=== PATIENT | female | born 1985 | race Caucasian/White ===

== ENCOUNTER 2017-05-27 09:47 | Emergency (ER) | payer OTHER ==
[2017-05-27] MEDS ORDERED: BENADRYL 50 MG/ML IV ONE (10:31)
[2017-05-27] MEDS ORDERED: Hydromorphone 1 mg/ml Ampule IV ONE (10:31)
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
[2017-05-27 10:39] LABS: Bilirubin NEGATIVE (NEGATIVE); Blood 50 Ery/ul (0-5); COMPLETE URINE MICROSCOPIC? YES; Collection Type CLEAN CATCH; Glucose NEGATIVE (NEGATIVE); Leukocyte Esterase TRACE (NEGATIVE)
[2017-05-27] MEDS ORDERED: BENADRYL 50 MG/ML ONE (10:45)
[2017-05-27] MEDS ORDERED: Hydromorphone 1 mg/ml Ampule ONE (10:45)
[2017-05-27 10:58] LABS: Clue Cells Few
[2017-05-27 11:00] LABS: Bacteria Moderate; Trichomonas None Seen; Yeast None Seen
[2017-05-27 11:02] LABS: Bacteria RARE /HPF (NEGATIVE); Epithelial Cells RARE /HPF (FEW)
[2017-05-27 11:03] LABS: ADD URINE CULTURE? NO (NO)
[2017-05-27 11:06] LABS: BASOPHIL % 0.5 % (0.0-0.4); Eosinophil % 5.7 % (0.00-5.0); Granulocytes % 65.4 % (36.0-66.0); Lymphocytes % 20.2 % (24.0-44.0); Mean Cell Volume 92.9 fl (78-100); Monocytes % 8.2 % (0.0-12.0); Platelet Count 341 K/mm3 (150-450); Red Blood Count 3.65 M/mm3 (4.1-5.4); Red Cell Distribution Width 15.2 % (11.5-14.0); White Blood Count 8.7 K/mm3 (4.0-10.5)
[2017-05-27 11:20] LABS: ALBUMIN 3.7 g/dL (3.4-5.0); ALKALINE PHOSPHATASE 149 U/L (46-116); ANION GAP 14.3 MEQ/L (5-15); BLOOD UREA NITROGEN 19 mg/dL (9-20); CHLORIDE 102 mEq/L (98-107); Carbon Dioxide 25.9 mEq/L (21-32); Glucose 90 MG/DL (70-110); Potassium 4.2 mEq/L (3.5-5.1); SGOT/AST 16 U/L (15-37); SGPT/ALT 17 U/L (12-78); SODIUM 138 mEq/L (136-145); Total Protein 7.7 gm/dL (6.4-8.2)
[2017-05-27] MEDS ORDERED: Diflucan 100 MG PO ONE (11:25)
[2017-05-27] MEDS ORDERED: DIFLUCAN PO ONE (11:30)
[2017-05-27 11:48] VITALS: BP 108/67; PULSE 90; O2SAT 96
== END 2017-05-27 11:49 | disposition home or self-care (01) ==
LOC: ED 09:47
DX: N76.0 Acute vaginitis (principal)
CPT/HCPCS: 36000; 36415; 80053; 81000; 84703; 85025; 87210; 96374; 96375; 99284; J1170; J1200; P9612; A9270-GY

== ENCOUNTER 2017-08-02 18:25 | Emergency (ER) | payer OTHER ==
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
[2017-08-02 21:24] LABS: Collection Type VOID
[2017-08-02 21:25] LABS: ADD URINE CULTURE? NO (NO); Bacteria FEW /HPF (NEGATIVE); Bilirubin NEGATIVE (NEGATIVE); Blood 250 Ery/ul (0-5); COMPLETE URINE MICROSCOPIC? YES; Epithelial Cells MODERATE /HPF (FEW); Glucose NEGATIVE (NEGATIVE); Leukocyte Esterase NEGATIVE (NEGATIVE); WBC 0-2 /HPF (0-5)
[2017-08-02] MEDS ORDERED: TORAdol 30 mg Injection IM ONE (21:44)
[2017-08-02] MEDS ORDERED: TORAdol 30 mg Injection ONE (21:46)
[2017-08-02 23:29] VITALS: BP 116/66; PULSE 55; O2SAT 100
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
== END 2017-08-02 23:34 | disposition home or self-care (01) ==
LOC: ED 18:25
DX: S39.012A Strain of muscle, fascia and tendon of lower back, initial encounter (principal); R10.2 Pelvic and perineal pain; W10.8XXA Fall (on) (from) other stairs and steps, initial encounter
CPT/HCPCS: 72100; 72170; 80307; 81000; 84703; J1885

== ENCOUNTER 2018-01-26 15:47 | Emergency (ER) | payer OTHER ==
[2018-01-26 15:59] VITALS: BP 113/90; PULSE 110; O2SAT 98
[2018-01-26] MEDS ORDERED: TORAdol 30 mg Injection IM ONE (16:17)
[2018-01-26] MEDS ORDERED: TORAdol 30 mg Injection ONE (16:22)
[2018-01-26] MEDS ORDERED: ULTRAM 50 MG PO ONE (16:32)
[2018-01-26] MEDS ORDERED: ULTRAM 50 MG ONE (16:38)
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
== END 2018-01-26 16:55 | disposition home or self-care (01) ==
LOC: ED 15:47
DX: S33.4XXA Traumatic rupture of symphysis pubis, initial encounter (principal)
CPT/HCPCS: 96372; 99283; J1885; A9270-GY

== ENCOUNTER 2020-12-20 20:13 | Emergency (ER) | payer OTHER ==
--- NOTE | 2020-12-20 20:27 | ERPHSYRPT ---
- History of Present Illness Time Seen by Provider: 12/20/20 20:21 Source: patient, family, EMS Exam Limitations: clinical condition Physician History: pt with known drug problems prior reported by family presented to neighbors and collapsed unresponsive. EMS found pinpoint pupils and gave Narcan twice with beginning response by arrival in ER. Pt denies any symptoms or injuries at this time. Timing/Duration: today Severity: severe Associated Symptoms: denies symptoms Allergies/Adverse Reactions: No Known Drug Allergies Allergy (Verified 12/20/20 20:39) Home Medications: Cariprazine HCl [Vraylar] 1.5 mg PO DAILY 12/20/20 [History] Meclizine HCl 12.5 mg PO BID PRN PRN 12/20/20 [History] Tramadol HCl 50 mg [Ultram 50 mg] 50 mg PO Q6H PRN PRN 12/20/20 [History] hydrOXYzine HCL [Hydroxyzine HCl] 25 mg PO TID PRN PRN 12/20/20 [History] Hx Tetanus, Diphtheria Vaccination/Date Given: Yes Hx Influenza Vaccination/Date Given: No Hx Pneumococcal Vaccination/Date Given: No - Review of Systems Constitutional: No Fever, No Chills Eyes: No Symptoms Ears, Nose, & Throat: No Symptoms Respiratory: No Cough, No Dyspnea Cardiac: No Chest Pain, No Edema, No Syncope Abdominal/Gastrointestinal: No Abdominal Pain, No Nausea, No Vomiting, No Diarrhea Genitourinary Symptoms: No Dysuria Musculoskeletal: No Back Pain, No Neck Pain Skin: No Rash Neurological: Other (AMS after presumed drug overdose), No Dizziness, No Focal Weakness, No Sensory Changes Psychological: Drug Abuse Endocrine: No Symptoms All Other Systems: Reviewed and Negative - Past Medical History Pertinent Past Medical History: Yes Neurological History: Peripheral Neuropathy ENT History: No Pertinent History Cardiac History: No Pertinent History Respiratory History: No Pertinent History Endocrine Medical History: No Pertinent History Musculoskeletal History: Fractures, Osteoarthritis GI Medical History: No Pertinent History History: Other Psycho-Social History: Depression Female Reproductive Disorders: Other Other Medical History: Pt had in patient rehab after surgery, then had home health - Past Surgical History Past Surgical History: Yes Musculoskeletal: Orthopedic Surgery Female Surgical History: Tubal Ligation - Social History Smoking Status: Current every day smoker How long have you smoked: years Exposure to second hand smoke: Yes Drug Use: none Patient Lives Alone: No - Nursing Vital Signs Nursing Vital Signs: Initial Vital Signs Temperature 96.0 F 12/20/20 20:17 Pulse Rate 80 12/20/20 20:17 Respiratory Rate 20 12/20/20 20:17 Blood Pressure 122/92 12/20/20 20:17 O2 Sat by Pulse Oximetry 99 12/20/20 20:17 Pain Scale Pain Intensity 0 - Physical Exam General Appearance: no apparent distress, alert, other (more alert as time goes by. ) Eye Exam: PERRL/EOMI, eyes nml inspection Ears, Nose, Throat Exam: normal ENT inspection, TMs normal, pharynx normal, moist mucous membranes Neck Exam: normal inspection, non-tender, supple, full range of motion Respiratory Exam: normal breath sounds, lungs clear, No respiratory distress Cardiovascular Exam: regular rate/rhythm, normal heart sounds, normal peripheral pulses Gastrointestinal/Abdomen Exam: soft, normal bowel sounds, No tenderness, No mass Back Exam: normal inspection, normal range of motion, No CVA tenderness, No vertebral tenderness Extremity Exam: normal inspection, normal range of motion, pelvis stable Neurologic Exam: alert, oriented x 3, cooperative, normal mood/affect, nml cerebellar function, nml station & gait, sensation nml, No motor deficits Skin Exam: normal color, warm, dry, No rash Lymphatic Exam: No adenopathy SpO2: 99 - Course Nursing assessment & vital signs reviewed: Yes EKG Interpreted by Me: Sinus Rhythm, NORMAL AXIS, NORMAL INTERVALS, NORMAL QRS, Non-specific ST Changes Ordered Tests: Active Orders 24 hr Category Date Time Status Theatrical Scenic Designer STAT Care 12/20/20 20:31 Active Clean Catch Urine Specimen STAT Care 12/20/20 20:28 Active EKG-ER Only STAT Care 12/20/20 20:28 Active Pulse Oximetry (ED) STAT Care 12/20/20 20:28 Active CHEST 1 VIEW (PORTABLE) Stat Exams 12/20/20 20:30 Taken ACETAMINOPHEN Stat Lab 12/20/20 21:06 Completed CBC W DIFF Stat Lab 12/20/20 21:06 Completed CMP Stat Lab 12/20/20 21:06 Completed ETHYL ALCOHOL Stat Lab 12/20/20 21:06 Completed HCG QUALITATIVE,SERUM Stat Lab 12/20/20 21:06 Completed Lactic Acid Stat Lab 12/20/20 21:00 Completed SALICYLATE Stat Lab 12/20/20 21:06 Completed UA W/RFX UR CULTURE Stat Lab 12/20/20 20:29 Ordered Urine Triage Profile Stat Lab 12/20/20 20:29 Ordered Medication Summary Discontinued Medications Generic Name Dose Route Start Last Admin Trade Name Riddhi PRN Reason Stop Dose Admin Sodium Chloride 1,000 mls @ 999 mls/hr 12/20/20 20:28 12/20/20 20:38 Sodium Chloride 0.9% 1000 Ml IV 12/20/20 21:28 999 mls/hr .Q1H1M STA Administration Sodium Chloride Confirm 12/20/20 20:36 Sodium Chloride 0.9% 1000 Ml Administered 12/20/20 20:37 Dose 1,000 mls @ ud .ROUTE .STK-MED ONE Lab/Rad Data: Laboratory Result Diagrams 12/20/20 21:06 12/20/20 21:06 Laboratory Results 12/20/20 12/20/20 12/20/20 Range/Units 21:06 21:06 21:06 WBC 13.1 H (4.0-10.5) K/mm3 RBC 4.26 (4.1-5.4) M/mm3 Hgb 12.5 (12.0-16.0) gm/dl Hct 38.1 (35-47) % MCV 89.4 (78-100) fl MCH 29.3 (26-32) pg MCHC 32.8 (32-36) g/dl RDW 12.8 (11.5-14.0) % Plt Count 246 (150-450) K/mm3 MPV 10.2 (7.5-11.0) fl Gran % 82.4 H (36.0-66.0) % Eos # (Auto) 0.06 (0-0.5) Absolute Lymphs (auto) 1.46 (1.0-4.6) Absolute Monos (auto) 0.74 (0.0-1.3) Lymphocytes % 11.2 L (24.0-44.0) % Monocytes % 5.7 (0.0-12.0) % Eosinophils % 0.5 (0.00-5.0) % Basophils % 0.2 (0.0-0.4) % Absolute Granulocytes 10.79 H (1.4-6.9) Basophils # 0.03 (0-0.4) Sodium 136 L (137-145) mmol/L Potassium 4.2 (3.5-5.1) mmol/L Chloride 104 (98-107) mmol/L Carbon Dioxide 24 (22-30) mmol/L Anion Gap 11.6 (5-15) MEQ/L BUN 16 (7-17) mg/dL Creatinine 0.65 (0.52-1.04) mg/dL Estimated GFR > 60.0 ML/MIN Glucose 100 (74-106) mg/dL Lactic Acid (0.4-2.0) Calcium 9.3 (8.4-10.2) mg/dL Total Bilirubin 0.50 (0.2-1.3) mg/dL AST 27 (14-36) U/L ALT 19 (0-35) U/L Alkaline Phosphatase 70 (38-126) U/L Serum Total Protein 7.5 (6.3-8.2) g/dL Albumin 4.3 (3.5-5.0) g/dL Serum , Qual NEGATIVE (Negative) Salicylates < 1.0 L (2-20) mg/dL Acetaminophen < 10 L (10-30) ug/ml Ethyl Alcohol < 10 (0-10) mg/dL 12/20/20 Range/Units 21:00 WBC (4.0-10.5) K/mm3 RBC (4.1-5.4) M/mm3 Hgb (12.0-16.0) gm/dl Hct (35-47) % MCV (78-100) fl MCH (26-32) pg MCHC (32-36) g/dl RDW (11.5-14.0) % Plt Count (150-450) K/mm3 MPV (7.5-11.0) fl Gran % (36.0-66.0) % Eos # (Auto) (0-0.5) Absolute Lymphs (auto) (1.0-4.6) Absolute Monos (auto) (0.0-1.3) Lymphocytes % (24.0-44.0) % Monocytes % (0.0-12.0) % Eosinophils % (0.00-5.0) % Basophils % (0.0-0.4) % Absolute Granulocytes (1.4-6.9) Basophils # (0-0.4) Sodium (137-145) mmol/L Potassium (3.5-5.1) mmol/L Chloride (98-107) mmol/L Carbon Dioxide (22-30) mmol/L Anion Gap (5-15) MEQ/L BUN (7-17) mg/dL Creatinine (0.52-1.04) mg/dL Estimated GFR ML/MIN Glucose (74-106) mg/dL Lactic Acid 0.9 (0.4-2.0) Calcium (8.4-10.2) mg/dL Total Bilirubin (0.2-1.3) mg/dL AST (14-36) U/L ALT (0-35) U/L Alkaline Phosphatase (38-126) U/L Serum Total Protein (6.3-8.2) g/dL Albumin (3.5-5.0) g/dL Serum , Qual (Negative) Salicylates (2-20) mg/dL Acetaminophen (10-30) ug/ml Ethyl Alcohol (0-10) mg/dL - Progress Progress: improved, re-examined Progress Note: 12/20/20 22:17 pt is now fully alert and walking without assist. clinically sober. Pt wishes to decline furhter care or workup in ER/hospital, and has been advised of risk of from undetected pathology, cardiovascular or other complications, and from any further drug use. She wishes to sign out AMA. SHe has now a normal mental status with no suicidal or homicidal ideations and has the capacity to make that choice. She has been advised to enter a drug rehab program [facility], followup with PCP, and return meantime if any symptoms or other concerns. Counseled pt/family regarding: drug and/or alcohol abuse, lab results, diag nosis, need for follow-up, rad results - Departure Departure Disposition: AMA Clinical Impression: apparent drug overdose Condition: Good Critical Care Time: No Referrals: ARASELI BARON [Primary Care Provider] - Instructions: Opioid Overdose (DC), Polysubstance Abuse (DC), Drug Abuse and Drug Addiction (DC) Additional Instructions: Followup with your DrVilma or a drug rehab program to help prevent further events. Additional undetected complications may still be evolving , which is why we advised to stay for observation, to avoid complications including . Return meantime if any furhter symptoms or concerns. It would be best to at least stay with a friend who could check on you tonight and the next few days.
[2020-12-20] MEDS ORDERED: Sodium Chloride 0.9% 1000 ML 1,000 ML IV STA (20:28)
[2020-12-20] MEDS ORDERED: Sodium Chloride 0.9% 1000 ML 1,000 ML ONE (20:36)
[2020-12-20 21:10] LABS: Absolute Neutrophil Ct (ANC) 10.79 (1.4-6.9); BASOPHIL % 0.2 % (0.0-0.4); Basophil (Absolute #) 0.03 (0-0.4); Eosinophil % 0.5 % (0.00-5.0); Eosinophil (Absolute #) 0.06 (0-0.5); Hematocrit 38.1 % (35-47); Hemoglobin 12.5 gm/dl (12.0-16.0); Lymphocyte (Absolute #) 1.46 (1.0-4.6); Lymphocytes % 11.2 % (24.0-44.0); Mean Cell Volume 89.4 fl (78-100); Mean Corpuscular Hemoglobin 29.3 pg (26-32); Mean Corpuscular Hgb Concent. 32.8 g/dl (32-36); Mean Platelet Volume 10.2 fl (7.5-11.0); Monocyte (Absolute #) 0.74 (0.0-1.3); Monocytes % 5.7 % (0.0-12.0); Neutrophil % 82.4 % (36.0-66.0); Platelet Count 246 K/mm3 (150-450); Red Blood Count 4.26 M/mm3 (4.1-5.4); Red Cell Distribution Width 12.8 % (11.5-14.0); White Blood Count 13.1 K/mm3 (4.0-10.5)
[2020-12-20 21:30] LABS: ACETAMINOPHEN < 10 ug/ml (10-30); ALBUMIN 4.3 g/dL (3.5-5.0); ALKALINE PHOSPHATASE 70 U/L (38-126); ANION GAP 11.6 MEQ/L (5-15); BLOOD UREA NITROGEN 16 mg/dL (7-17); CHLORIDE 104 mmol/L (98-107); Calcium 9.3 mg/dL (8.4-10.2); Carbon Dioxide 24 mmol/L (22-30); Creatinine 1 0.65 mg/dL (0.52-1.04); EST GLOMERULAR FILTRATION RATE > 60.0 ML/MIN; ETHYL ALCOHOL < 10 mg/dL (0-10); Glucose 100 mg/dL (74-106); Potassium 4.2 mmol/L (3.5-5.1); SALICYLATE < 1.0 mg/dL (2-20); SGOT/AST 27 U/L (14-36); SGPT/ALT 19 U/L (0-35); SODIUM 136 mmol/L (137-145); Total Protein 7.5 g/dL (6.3-8.2)
[2020-12-20 22:12] VITALS: PULSE 87
[2020-12-20 22:53] VITALS: BP 120/80; O2SAT 100
[2020-12-21 00:16] LABS: Barbiturate,Urine NEGATIVE (NEGATIVE); Benzodiazepine,Urine NEGATIVE (NEGATIVE); Cocaine,Urine NEGATIVE (NEGATIVE); Methadone,Urine NEGATIVE (NEGATIVE); Opiate,Urine NEGATIVE (NEGATIVE); PCP,Urine NEGATIVE (NEGATIVE); THC,Urine POSITIVE (NEGATIVE)
[2020-12-21 00:38] LABS: Appearance CLEAR (CLEAR); Bilirubin NEGATIVE (NEGATIVE); Blood SMALL Ery/ul (0-5); Glucose NEGATIVE (NEGATIVE); Ketones TRACE (NEGATIVE); Leukocyte Esterase NEGATIVE (NEGATIVE); Mucus SLIGHT /HPF (NEGATIVE); Nitrite NEGATIVE (NEGATIVE); Protein,Urine Dip NEGATIVE (Negative); Specific Gravity 1.014 (1.005-1.025); Urobilinogen NEGATIVE mg/dL (0-1)
[2020-12-21 00:49] LABS: Amphetamine,Urine POSITIVE (NEGATIVE)
--- NOTE | 2020-12-21 09:21 | XRAY ---
Indication: Acute mental status change. Comparison: None Portable chest again demonstrates normal heart and lungs. 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
== END 2020-12-20 22:53 | disposition home or self-care (01) ==
LOC: ED 20:13
DX: R55 Syncope and collapse (principal); F19.10 Other psychoactive substance abuse, uncomplicated; F17.210 Nicotine dependence, cigarettes, uncomplicated
CPT/HCPCS: 36415; 71045; 80053; 80307; 81001; 81025; 83605; 85025; 93005; 93041; 94760; 96360; 99284; G0480

== ENCOUNTER 2021-01-28 10:30 | Emergency (ER) | payer OTHER ==
[2021-01-28] MEDS ORDERED: Sodium Chloride 0.9% 1000 ML 1,000 ML ONE (11:02)
[2021-01-28] MEDS: Sodium Chloride 0.9% 1000 ML 1,000 ML IV STA (11:04)
[2021-01-28 11:19] LABS: ALBUMIN 4.5 g/dL (3.5-5.0); ALKALINE PHOSPHATASE 123 U/L (38-126); ANION GAP 13.2 MEQ/L (5-15); Appearance CLOUDY (CLEAR); BLOOD UREA NITROGEN 13 mg/dL (7-17); Bacteria MODERATE /HPF (NEGATIVE); Bilirubin NEGATIVE (NEGATIVE); Blood MODERATE Ery/ul (0-5); CHLORIDE 99 mmol/L (98-107); Calcium 9.4 mg/dL (8.4-10.2); Carbon Dioxide 27 mmol/L (22-30); Creatinine 1 0.63 mg/dL (0.52-1.04); EST GLOMERULAR FILTRATION RATE > 60.0 ML/MIN; Epithelial Cells FEW /HPF (FEW); Glucose 104 mg/dL (74-106); Glucose NEGATIVE (NEGATIVE); Ketones NEGATIVE (NEGATIVE); Leukocyte Esterase LARGE (NEGATIVE); Mucus SLIGHT /HPF (NEGATIVE); Nitrite NEGATIVE (NEGATIVE); Potassium 3.8 mmol/L (3.5-5.1); Protein,Urine Dip 30 (Negative); SGOT/AST 28 U/L (14-36); SGPT/ALT 22 U/L (0-35); SODIUM 135 mmol/L (137-145); Specific Gravity 1.024 (1.005-1.025); Urobilinogen 2 mg/dL (0-1); WBC >100 /HPF (0-5)
[2021-01-28] MEDS ORDERED: TORAdol 30 mg Injection ONE (11:29)
[2021-01-28] MEDS: TORAdol 30 mg Injection IV ONE (11:29)
--- NOTE | 2021-01-28 11:33 | ERPHSYRPT ---
- History of Present Illness Time Seen by Provider: 01/28/21 10:40 Historian: patient Exam Limitations: no limitations Patient Subjective Stated Complaint: Pt states that it has been hurting in her right flank and lower right abdomen for the past 2-3 days and has pain in a bdomen when urinating Triage Nursing Assessment: Pt was brought to the ER by her dad, vitals wnl, rates abdominal pain as 8/10, right flank pain and right lower abdominal pain, pain with palpatation, pulses normal, skin n/w/d Physician History: Patient is a 35-year-old female presents to our emergency department for evaluation of right lower quadrant pain. Symptoms started approximately 3 days ago. Pain described as an ache that is localized. Pain tends to radiate to her back. No specific worsening or improving factors. Patient also admits that she is experiencing dysuria. Patient expresses a concern for possible gonorrhea infection. She states she had unprotected intercourse with a friend. Shortly thereafter he called her and told her that he had been exposed to gonorrhea. Patient requesting to be checked. Patient declined a pelvic exam. So we obtained a gonorrhea chlamydia and urine sample. Patient elected to self swab f or the wet prep. Patient denies nausea or vomiting. No diarrhea no rash. Symptoms are mild to moderate in intensity. No specific worsening improving factors. Patient voices no other complaints concerns at this time. Timing/Duration: day(s) (3 days ago.) Activities at Onset: none Quality: aching Abdominal Pain Onset Location: RLQ Pain Radiation: back Severity of Pain-Max: moderate Modifying Factors: Improves With: movement Associated Symptoms: back, No diarrhea, No fever/chills, No nausea, No vomiting Previous symptoms: no prior history Allergies/Adverse Reactions: No Known Drug Allergies Allergy (Verified 01/28/21 10:44) Home Medications: Cariprazine HCl [Vraylar] 1.5 mg PO DAILY 01/28/21 [History] Hydroxyzine HCl 25 mg [Atarax 25 mg] 25 mg PO TID 01/28/21 [History] Naltrexone HCl 50 mg PO DAILY 01/28/21 [History] Hx Tetanus, Diphtheria Vaccination/Date Given: Yes Hx Influenza Vaccination/Date Given: No Hx Pneumococcal Vaccination/Date Given: No Travel Risk - International Travel Have you traveled outside of the country in past 3 weeks: No - Coronavirus Screening Are you exhibiting any of the following symptoms?: No Close contact with a COVID-19 positive Pt in past 14-21 Days: No - Review of Systems Constitutional: No Symptoms, No Fever, No Chills Eyes: No Symptoms Ears, Nose, & Throat: No Symptoms Respiratory: No Symptoms, No Cough, No Dyspnea Cardiac: No Symptoms, No Chest Pain, No Edema, No Syncope Abdominal/Gastrointestinal: No Symptoms, No Abdominal Pain, No Nausea, No Vomiting, No Diarrhea Genitourinary Symptoms: No Symptoms, No Dysuria Musculoskeletal: No Symptoms, No Back Pain, No Neck Pain Skin: No Symptoms, No Rash Neurological: No Symptoms, No Dizziness, No Focal Weakness, No Sensory Changes Psychological: No Symptoms Endocrine: No Symptoms Hematologic/Lymphatic: No Symptoms Immunological/Allergic: No Symptoms All Other Systems: Reviewed and Negative - Past Medical History Pertinent Past Medical History: Yes Neurological History: Peripheral Neuropathy ENT History: No Pertinent History Cardiac History: No Pertinent History Respiratory History: No Pertinent History Endocrine Medical History: No Pertinent History Musculoskeletal History: Fractures, Osteoarthritis GI Medical History: No Pertinent History History: Other Psycho-Social History: Depression Female Reproductive Disorders: Other Other Medical History: Pt had in patient rehab after surgery, then had home health - Past Surgical History Past Surgical History: Yes Musculoskeletal: Orthopedic Surgery Female Surgical History: Tubal Ligation - Social History Smoking Status: Current every day smoker How long have you smoked: years Exposure to second hand smoke: Yes Drug Use: none Patient Lives Alone: Yes - Female History Hx Now: No (tubal) - Nursing Vital Signs Nursing Vital Signs: Initial Vital Signs Temperature 98.0 F 01/28/21 10:36 Pulse Rate 97 H 01/28/21 10:36 Blood Pressure 136/84 01/28/21 10:36 O2 Sat by Pulse Oximetry 100 01/28/21 10:36 Pain Scale Pain Intensity 3 - Physical Exam General Appearance: no apparent distress, alert Eye Exam: PERRL/EOMI, eyes nml inspection Ears, Nose, Throat Exam: normal ENT inspection, pharynx normal, moist mucous membranes Neck Exam: normal inspection, non-tender, supple, full range of motion Respiratory Exam: normal breath sounds, lungs clear, No respiratory distress Cardiovascular Exam: regular rate/rhythm, normal heart sounds Gastrointestinal/Abdomen Exam: soft, other (Well-healed midline surgical scar. Tenderness to palpation at McBurney's point and right pelvic tenderness at the area of the right ovary.), No tenderness, No mass Back Exam: normal inspection, normal range of motion, No CVA tenderness, No vertebral tenderness Extremity Exam: normal inspection, normal range of motion, pelvis stable Neurologic Exam: alert, oriented x 3, cooperative, normal mood/affect, nml cerebellar function, sensation nml, No motor deficits Skin Exam: normal color, warm, dry SpO2 Interpretation: normal SpO2: 100 O2 Delivery: Room Air - Course Nursing assessment & vital signs reviewed: Yes - Radiology Ultrasound Exam Pelvis Ultrasound: discussed w/radiologist (Per advertising designer no torsion. Small cysts observed. Small fluid in cul-de-sac. Otherwise nonremarkable pelvic ultrasound.) Ordered Tests: Active Orders 24 hr Category Date Time Status IV Insertion STAT Care 01/28/21 10:53 Active ABDOMEN AND PELVIS W CONTRAST [CT] Stat Exams 01/28/21 12:03 Completed PELVIS TRANS VAGINAL [US] Stat Exams 01/28/21 11:51 Completed CBC W DIFF Stat Lab 01/28/21 11:00 Completed CMP Stat Lab 01/28/21 11:00 Completed CULTURE,URINE Stat Lab 01/28/21 11:00 Received HCG,QUALITATIVE URINE Stat Lab 01/28/21 11:17 Completed UA W/RFX UR CULTURE Stat Lab 01/28/21 11:00 Completed Wet Prep Stat Lab 01/28/21 11:42 Completed Medication Summary Discontinued Medications Generic Name Dose Route Start Last Admin Trade Name Freq PRN Reason Stop Dose Admin Sodium Chloride 1,000 mls @ 999 mls/hr 01/28/21 10:53 01/28/21 12:48 Sodium Chloride 0.9% 1000 Ml IV 01/28/21 11:53 Infused .Q1H1M STA Infusion Sodium Chloride Confirm 01/28/21 11:02 Sodium Chloride 0.9% 1000 Ml Administered 01/28/21 11:03 Dose 1,000 mls @ ud .ROUTE .STK-MED ONE Ketorolac Tromethamine 30 mg 01/28/21 11:24 01/28/21 11:29 Toradol 30 Mg Injection IV 01/28/21 11:25 30 mg STAT ONE Administration Ketorolac Tromethamine Confirm 01/28/21 11:29 Toradol 30 Mg Injection Administered 01/28/21 11:30 Dose 30 mg .ROUTE .STK-MED ONE Nitrofurantoin Macrocrystals 100 mg 01/28/21 12:48 01/28/21 12:51 Macrobid 100mg Capsule PO 01/28/21 12:49 100 mg STAT ONE Administration Nitrofurantoin Macrocrystals Confirm 01/28/21 12:50 Macrobid 100mg Capsule Administered 01/28/21 12:51 Dose 100 mg .ROUTE .STK-MED ONE Ondansetron HCl 4 mg 01/28/21 12:13 01/28/21 12:18 Zofran 4 Mg/2 Ml Vial IV 01/28/21 12:14 4 mg STAT ONE Administration Ondansetron HCl Confirm 01/28/21 12:16 Zofran 4 Mg/2 Ml Vial Administered 01/28/21 12:17 Dose 4 mg .ROUTE .STK-MED ONE Lab/Rad Data: Laboratory Result Diagrams 01/28/21 11:00 01/28/21 11:00 Laboratory Results 01/28/21 01/28/21 01/28/21 Range/Units 11:42 11:17 11:00 WBC (4.0-10.5) K/mm3 RBC (4.1-5.4) M/mm3 Hgb (12.0-16.0) gm/dl Hct (35-47) % MCV (78-100) fl MCH (26-32) pg MCHC (32-36) g/dl RDW (11.5-14.0) % Plt Count (150-450) K/mm3 MPV (7.5-11.0) fl Gran % (36.0-66.0) % Eos # (Auto) (0-0.5) Absolute Lymphs (auto) (1.0-4.6) Absolute Monos (auto) (0.0-1.3) Lymphocytes % (24.0-44.0) % Monocytes % (0.0-12.0) % Eosinophils % (0.00-5.0) % Basophils % (0.0-0.4) % Absolute Granulocytes (1.4-6.9) Basophils # (0-0.4) Sodium (137-145) mmol/L Potassium (3.5-5.1) mmol/L Chloride (98-107) mmol/L Carbon Dioxide (22-30) mmol/L Anion Gap (5-15) MEQ/L BUN (7-17) mg/dL Creatinine (0.52-1.04) mg/dL Estimated GFR ML/MIN Glucose (74-106) mg/dL Calcium (8.4-10.2) mg/dL Total Bilirubin (0.2-1.3) mg/dL AST (14-36) U/L ALT (0-35) U/L Alkaline Phosphatase (38-126) U/L Serum Total Protein (6.3-8.2) g/dL Albumin (3.5-5.0) g/dL Urine Color YELLOW (YELLOW) Urine Appearance CLOUDY (CLEAR) Urine pH 7.0 (5-6) Ur Specific [place] 1.024 (1.005-1.025) Urine Protein 30 (Negative) Urine Ketones NEGATIVE (NEGATIVE) Urine Blood MODERATE (0-5) Valentin/ul Urine Nitrite NEGATIVE (NEGATIVE) Urine Bilirubin NEGATIVE (NEGATIVE) Urine Urobilinogen 2 (0-1) mg/dL Ur Leukocyte Esterase LARGE (NEGATIVE) Urine WBC (Auto) >100 (0-5) /HPF Urine RBC (Auto) 6-10 (0-2) /HPF U Epithel Cells (Auto) FEW (FEW) /HPF Urine Bacteria (Auto) MODERATE (NEGATIVE) /HPF Urine Mucus (Auto) SLIGHT (NEGATIVE) /HPF Urine Culture Reflexed YES (NO) Urine Glucose NEGATIVE (NEGATIVE) mg/dL Urine HCG, Qual NEGATIVE (Negative) WBC (Wet Prep) Moderate RBC (Wet Prep) Rare Epi Cells (Wet Prep) Few Bacteria (Wet Prep) Moderate Clue Cells (Wet Prep) None Seen Trichomonas (Wet Prep) None Seen Budding Yeast (Wet Prp) None Seen 01/28/21 01/28/21 Range/Units 11:00 11:00 WBC 12.1 H (4.0-10.5) K/mm3 RBC 4.27 (4.1-5.4) M/mm3 Hgb 12.6 (12.0-16.0) gm/dl Hct 38.2 (35-47) % MCV 89.5 (78-100) fl MCH 29.5 (26-32) pg MCHC 33.0 (32-36) g/dl RDW 12.8 (11.5-14.0) % Plt Count 320 (150-450) K/mm3 MPV 10.4 (7.5-11.0) fl Gran % 69.0 H (36.0-66.0) % Eos # (Auto) 0.34 (0-0.5) Absolute Lymphs (auto) 2.45 (1.0-4.6) Absolute Monos (auto) 0.88 (0.0-1.3) Lymphocytes % 20.3 L (24.0-44.0) % Monocytes % 7.3 (0.0-12.0) % Eosinophils % 2.8 (0.00-5.0) % Basophils % 0.6 (0.0-0.4) % Absolute Granulocytes 8.33 H (1.4-6.9) Basophils # 0.07 (0-0.4) Sodium 135 L (137-145) mmol/L Potassium 3.8 (3.5-5.1) mmol/L Chloride 99 (98-107) mmol/L Carbon Dioxide 27 (22-30) mmol/L Anion Gap 13.2 (5-15) MEQ/L BUN 13 (7-17) mg/dL Creatinine 0.63 (0.52-1.04) mg/dL Estimated GFR > 60.0 ML/MIN Glucose 104 (74-106) mg/dL Calcium 9.4 (8.4-10.2) mg/dL Total Bilirubin 0.40 (0.2-1.3) mg/dL AST 28 (14-36) U/L ALT 22 (0-35) U/L Alkaline Phosphatase 123 (38-126) U/L Serum Total Protein 8.0 (6.3-8.2) g/dL Albumin 4.5 (3.5-5.0) g/dL Urine Color (YELLOW) Urine Appearance (CLEAR) Urine pH (5-6) Ur Specific [place] (1.005-1.025) Urine Protein (Negative) Urine Ketones (NEGATIVE) Urine Blood (0-5) Valentin/ul Urine Nitrite (NEGATIVE) Urine Bilirubin (NEGATIVE) Urine Urobilinogen (0-1) mg/dL Ur Leukocyte Esterase (NEGATIVE) Urine WBC (Auto) (0-5) /HPF Urine RBC (Auto) (0-2) /HPF U Epithel Cells (Auto) (FEW) /HPF Urine Bacteria (Auto) (NEGATIVE) /HPF Urine Mucus (Auto) (NEGATIVE) /HPF Urine Culture Reflexed (NO) Urine Glucose (NEGATIVE) mg/dL Urine HCG, Qual (Negative) WBC (Wet Prep) RBC (Wet Prep) Epi Cells (Wet Prep) Bacteria (Wet Prep) Clue Cells (Wet Prep) Trichomonas (Wet Prep) Budding Yeast (Wet Prp) - Progress Progress: improved Progress Note: 01/28/21 12:16 Ultrasound reveals a new 1.9 cm complex right ovary cyst. Follow-up recommended following at least 2 menstrual cycles. Work-up reveals constipation. Patient will take [id number] laxative as needed. UA significant for urinary tract infection. Patient received a dose of Macrobid in our ED. A prescription for the same was sent to patient's pharmacy. Patient states she has been exposed to gonorrhea. Wet mount negative. GC chlamydia pending. Patient does not want to wait for her results. Patient has an appointment scheduled to see her primary care doctor tomorrow. Patient states if her test is positive we should call into her primary care doctor and he will treat her from the office. Patient voices no other complaints at this time. Patient requesting discharge as her child is waiting in the waiting room and wants to leave. Patient voices no other complaints or concerns at this time. Will discharge home at this time. 01/28/21 13:46 Counseled pt/family regarding: lab results, diagnosis, need for follow-up, rad results - Departure Departure Disposition: Home Clinical Impression: UTI (urinary tract infection), Abdominal pain, Nabothian cyst, Constipation, STD exposure Condition: Stable Critical Care Time: No Referrals: ARASELI BARON [Primary Care Provider] - Additional Instructions: Discharge/Care Plan SRIRAM DYKES was seen on 01/28/21 in the Emergency Room. The patient was counseled regarding Diagnosis,Lab results, Imaging studies, need for follow up and when to return to the Emergency Room. Prescriptions given: Discharge Note I have spoken with the patient and/or caregivers. I have explained the patient's condition, diagnosis and treatment plan based on the information available to me at this time. I have answered the patient's and/or caregiver's questions and addressed any concerns. The patient and/or caregivers have as good understanding of the patient's diagnosis, condition and treatment plan as can be expected at this point. The vital signs have been stable. The patient's condition is stable and appropriate for discharge from the emergency department. The patient will pursue further outpatient evaluation with the primary care physician or other designated or consulting physician as outlined in the discharge instructions. The patient and/or caregivers are agreeable to this plan of care and follow-up instructions have been explained in detail. The patient and/or caregivers have received these instruction. The patient/and or caregivers are aware that any significant change in condition or worsening of symptoms should prompt an immediate return to this or the closest emergency department or call 911. Prescriptions: Nitrofurantoin Macro 100 mg [Macrobid 100MG Capsule] 100 mg PO BID 7 Days #14 cap
[2021-01-28 11:42] LABS: Bacteria Moderate; Clue Cells None Seen
[2021-01-28 11:43] LABS: Red Blood Cells Rare; Trichomonas None Seen; White Blood Cells Moderate; Yeast None Seen
--- NOTE | 2021-01-28 12:00 | XRAY ---
Indication: Right lower quadrant pain. Two-dimensional transvaginal pelvic sonogram performed. Comparison: February 15, 2015. Uterus again anteverted today measuring 8.3 x 4.6 x 6.0 cm. Stable lower uterine segment 4 mm nabothian cyst. No new solid/cystic uterine mass. Endometrial stripe measures 4.8 mm. No endometrial cavity mass or fluid collection. Right ovary measures 2.7 x 1.8 x 2.5 cm and the left measures 2.5 x 1.7 x 2.7 cm. Normal follicular cysts and perfusion bilaterally. Right ovary demonstrates new 1.4 x 1.4 x 1.9 cm cyst with internal debris layering. No suspicious solid adnexal mass. Small cul-de-sac free fluid presumed physiologic from rupture/leaking cyst. Impression: 1. New 1.9 cm complex right ovary cyst as detailed. Recommend follow-up following at least 2 menstrual cycles. 2. Small physiologic cul-de-sac fluid. 3. Stable tiny nabothian cyst.
[2021-01-28 12:11] LABS: Absolute Neutrophil Ct (ANC) 8.33 (1.4-6.9); BASOPHIL % 0.6 % (0.0-0.4); Basophil (Absolute #) 0.07 (0-0.4); Eosinophil % 2.8 % (0.00-5.0); Eosinophil (Absolute #) 0.34 (0-0.5); Hematocrit 38.2 % (35-47); Hemoglobin 12.6 gm/dl (12.0-16.0); Lymphocyte (Absolute #) 2.45 (1.0-4.6); Lymphocytes % 20.3 % (24.0-44.0); Mean Cell Volume 89.5 fl (78-100); Mean Corpuscular Hemoglobin 29.5 pg (26-32); Mean Platelet Volume 10.4 fl (7.5-11.0); Monocyte (Absolute #) 0.88 (0.0-1.3); Monocytes % 7.3 % (0.0-12.0); Platelet Count 320 K/mm3 (150-450); Red Blood Count 4.27 M/mm3 (4.1-5.4); Red Cell Distribution Width 12.8 % (11.5-14.0); White Blood Count 12.1 K/mm3 (4.0-10.5)
[2021-01-28] MEDS ORDERED: Zofran 4 MG/2 ML VIAL ONE (12:16)
[2021-01-28] MEDS: Zofran 4 MG/2 ML VIAL IV ONE (12:18)
--- NOTE | 2021-01-28 12:26 | XRAY ---
Indication: Right lower quadrant and right back pain 3 days. Multiple contiguous axial images obtained through the abdomen and pelvis using 80 cc Isovue 370 contrast. Comparison: February 10, 2016. Lung bases remain clear. Heart is not enlarged. New intact orthopedic screws traverse the sacrum/both SI joints and also both superior pubic bones producing extreme beam artifact limiting these levels. Noncontrasted stomach and bowel loops. Normal appendix. There is now mild diffuse scattered colonic fecal debris throughout. Small cul-de-sac fluid presumed physiologic from rupture/leaking cyst. No free air. Previous small left upper renal cortical cyst appears smaller today 1 cm. Remaining liver, gallbladder, pancreas, spleen, adrenal glands, kidneys, ureters, bladder, uterus, and aorta appear normal in CT appearance and attenuation. No pathologic retroperitoneal lymphadenopathy. Osseous structures intact. Impression: 1. New pelvic orthopedic hardware producing extreme beam artifact limiting these levels. 2. New mild diffuse fecal stasis. 3. Incidental physiologic cul-de-sac free fluid and left renal cyst. 4. Remaining CT abdomen/pelvis with contrast exam is negative.
[2021-01-28] MEDS ORDERED: Macrobid 100MG Capsule ONE (12:50)
[2021-01-28] MEDS: Macrobid 100MG Capsule PO ONE (12:51)
[2021-01-28 13:04] VITALS: O2SAT 100
[2021-01-28 13:37] VITALS: BP 121/77; PULSE 93
[2021-01-28 15:56] LABS: CHLAMYDIA DNA NOT DETECTED (NEGATIVE); GC DNA Probe DETECTED (NEGATIVE)
== END 2021-01-28 13:50 | disposition home or self-care (01) ==
LOC: ED 10:30
DX: N39.0 Urinary tract infection, site not specified (principal); R10.9 Unspecified abdominal pain; N88.8 Other specified noninflammatory disorders of cervix uteri; K59.00 Constipation, unspecified; Z20.2 Contact with and (suspected) exposure to infections with a predominantly sexual mode of transmission
CPT/HCPCS: 36000; 36415; 74177; 76830; 80053; 81001; 84703; 85025; 87086; 87210; 87491; 87591; 96360; 96374; 96375; 99284; J1885; J2405; A9270-GY

== ENCOUNTER 2021-12-19 10:39 | Emergency (ER) | payer OTHER ==
[2021-12-19] MEDS ORDERED: Inapsine 5 MG/2 ML IV ONE (10:55)
[2021-12-19] MEDS ORDERED: Sodium Chloride 0.9% 1000 ML 1,000 ML IV STA (10:55)
[2021-12-19] MEDS ORDERED: SUBLIMAZE 100 MCG/2 ML IV ONE (10:55)
[2021-12-19] MEDS ORDERED: Inapsine 5 MG/2 ML ONE (11:11)
--- NOTE | 2021-12-19 11:11 | ERPHSYRPT ---
- History of Present Illness Time Seen by Provider: 12/19/21 11:08 Historian: patient Exam Limitations: no limitations Patient Subjective Stated Complaint: pt reports abdominal pain for approx one week, states she had covid 2 weeks ago, reports she was seen recently at [facility] for the same issue, pt reports she feels like she may have a bladder infection. Triage Nursing Assessment: pt is aox3, appears in pain, pupils perrl, afebrile, resps easy and non labored, cap refill < 3 seconds, radial pulses strong and equal, pt abd soft, tender to the RLQ, bowel sounds are present x 4, pt skin pink warm dry. Physician History: pt reports abdominal pain for approx one week, states she had covid 2 weeks ago, reports she was seen recently at [facility] for the same issue, pt reports she feels like she may have a bladder infection. Patient is 36-year-old female came to the emergency room with complaining of right lower quadrant abdominal pain for 1 week. Patient was recently seen at [facility] with the same issue and at that time she was diagnosed with possible UTI and was discharged home with the antibiotic. But her problem got worse and now she has a severe cramping right lower quadrant abdominal pain associated with some nausea. Patient had a same type of problem year ago. Patient denies any fever chills blood in the urine. Timing/Duration: day(s) (5-7 days) Activities at Onset: none Quality: cramping, stabbing Abdominal Pain Onset Location: RLQ Pain Radiation: no radiation Severity of Pain-Max: moderate Severity of Pain-Current: moderate Modifying Factors: Improves With: nothing Associated Symptoms: denies symptoms Previous symptoms: same symptoms as today Allergies/Adverse Reactions: No Known Drug Allergies Allergy (Verified 02/01/21 13:35) Home Medications: Cariprazine HCl [Vraylar] 1.5 mg PO DAILY 01/28/21 [History] Hydroxyzine HCl 25 mg [Atarax 25 mg] 25 mg PO TID 01/28/21 [History] Hx Tetanus, Diphtheria Vaccination/Date Given: Yes Hx Influenza Vaccination/Date Given: No Hx Pneumococcal Vaccination/Date Given: No Immunizations Up to Date: Yes Travel Risk - International Travel Have you traveled outside of the country in past 3 weeks: No - Coronavirus Screening Are you exhibiting any of the following symptoms?: No Close contact with a COVID-19 positive Pt in past 14-21 Days: Yes - Vaccine Status Have you recieved a Covid-19 vaccination: No - Review of Systems Constitutional: No Fever, No Chills Eyes: No Symptoms Ears, Nose, & Throat: No Symptoms Respiratory: No Cough, No Dyspnea Cardiac: No Chest Pain, No Edema, No Syncope Abdominal/Gastrointestinal: Abdominal Pain, No Nausea, No Vomiting, No Diarrhea Genitourinary Symptoms: Dysuria, Hesitancy Musculoskeletal: No Back Pain, No Neck Pain Skin: No Rash Neurological: No Dizziness, No Focal Weakness, No Sensory Changes Psychological: No Symptoms Endocrine: No Symptoms All Other Systems: Reviewed and Negative - Past Medical History Pertinent Past Medical History: Yes Neurological History: Peripheral Neuropathy ENT History: No Pertinent History Cardiac History: No Pertinent History Respiratory History: No Pertinent History Endocrine Medical History: No Pertinent History Musculoskeletal History: Fractures, Osteoarthritis GI Medical History: No Pertinent History History: Other Psycho-Social History: Depression Female Reproductive Disorders: Other Other Medical History: Pt had in patient rehab after surgery, then had home health, recurrent UTI - Past Surgical History Past Surgical History: Yes Gastrointestinal: Exploratory Laparoscopy Musculoskeletal: Orthopedic Surgery Female Surgical History: Tubal Ligation Other Surgical History: exploratory lap for internal bleeding from accident - Social History Smoking Status: Current every day smoker How long have you smoked: years Exposure to second hand smoke: Yes Drug Use: none, other Patient Lives Alone: No - Female History Hx Last Menstrual Period: 12/06/21 Hx Now: No - Nursing Vital Signs Nursing Vital Signs: Initial Vital Signs Temperature 97.3 F 12/19/21 10:46 Pulse Rate 77 12/19/21 10:46 Respiratory Rate 20 12/19/21 10:46 Blood Pressure 100/68 12/19/21 10:46 O2 Sat by Pulse Oximetry 98 12/19/21 10:46 Pain Scale Pain Intensity 10 - Physical Exam General Appearance: no apparent distress, alert Eye Exam: PERRL/EOMI, eyes nml inspection Ears, Nose, Throat Exam: normal ENT inspection, pharynx normal, moist mucous membranes Neck Exam: normal inspection, non-tender, supple, full range of motion Respiratory Exam: normal breath sounds, lungs clear, No respiratory distress Cardiovascular Exam: regular rate/rhythm, normal heart sounds Gastrointestinal/Abdomen Exam: soft, tenderness (RLQ), No mass, No rebound Back Exam: normal inspection, normal range of motion, No CVA tenderness, No vertebral tenderness Extremity Exam: normal inspection, normal range of motion, pelvis stable Neurologic Exam: alert, oriented x 3, cooperative, normal mood/affect, nml cerebellar function, sensation nml, No motor deficits Skin Exam: normal color, warm, dry SpO2: 98 - Course Nursing assessment & vital signs reviewed: Yes - CT Exams Abdomen/Pelvis CT Interpretation: Tele-radiologist Report, Normal Appendix, Other (left nephrolithiasis w/o obstruction) Ordered Tests: Active Orders 24 hr Category Date Time Status ABDOMEN AND PELVIS W/0 CONTRAS [CT] Stat Exams 12/19/21 10:57 Taken AMYLASE Stat Lab 12/19/21 11:10 Completed CBC W DIFF Stat Lab 12/19/21 11:10 Completed CMP Stat Lab 12/19/21 11:10 Completed CULTURE,URINE Stat Lab 12/19/21 10:58 Received LIPASE Stat Lab 12/19/21 11:10 Completed Lactic Acid Stat Lab 12/19/21 10:55 Completed UA W/RFX UR CULTURE Stat Lab 12/19/21 10:58 Completed Urine Triage Profile Stat Lab 12/19/21 10:58 Completed Medication Summary Discontinued Medications Generic Name Dose Route Start Last Admin Trade Name Ebenezerq PRN Reason Stop Dose Admin Droperidol 1.25 mg 12/19/21 10:55 12/19/21 11:14 Droperidol 5 Mg/2 Ml Vial IV 12/19/21 10:56 1.25 mg STAT ONE Administration Droperidol Confirm 12/19/21 11:11 Droperidol 5 Mg/2 Ml Vial Administered 12/19/21 11:12 Dose 5 mg .ROUTE .STK-MED ONE Fentanyl Citrate 50 mcg 12/19/21 10:55 12/19/21 11:14 Fentanyl Citrate 100 Mcg/2 Ml* Vial IV 12/19/21 10:56 50 mcg STAT ONE Administration Fentanyl Citrate Confirm 12/19/21 11:12 Fentanyl Citrate 100 Mcg/2 Ml* Vial Administered 12/19/21 11:13 Dose 100 mcg .ROUTE .STK-MED ONE Sodium Chloride 1,000 mls @ 999 mls/hr 12/19/21 10:55 12/19/21 11:15 Sodium Chloride 0.9% 1000 Ml IV 12/19/21 11:55 999 mls/hr .Q1H1M STA Administration Sodium Chloride Confirm 12/19/21 11:13 Sodium Chloride 0.9% 1000 Ml Administered 12/19/21 11:14 Dose 1,000 mls @ ud .ROUTE .[facility]-MED ONE Ceftriaxone Sodium/Dextrose 1 g in 50 mls @ 100 mls/hr 12/19/21 11:31 0201/25 11:54 Rocephin 1 Gm-D5w 50 Ml Bag IV 12/19/21 12:00 100 mls/hr STAT STA 100 mls/hr Administration Ceftriaxone Sodium/Dextrose Confirm 12/19/21 11:54 Rocephin 1 Gm-D5w 50 Ml Bag Administered 12/19/21 11:55 Dose 1 g in 50 mls @ ud IV .[facility]-MED ONE Lab/Rad Data: Laboratory Result Diagrams 12/19/21 11:10 12/19/21 11:10 Laboratory Results 12/19/21 12/19/21 12/19/21 Range/Units 11:10 11:10 10:58 WBC 9.3 (4.0-10.5) K/mm3 RBC 4.40 (4.1-5.4) M/mm3 Hgb 12.7 (12.0-16.0) gm/dl Hct 39.5 (35-47) % MCV 89.8 (78-100) fl MCH 28.9 (26-32) pg MCHC 32.2 (32-36) g/dl RDW 13.1 (11.5-14.0) % Plt Count 316 (150-450) K/mm3 MPV 10.5 (7.5-11.0) fl Gran % 67.2 H (36.0-66.0) % Eos # (Auto) 0.32 (0-0.5) Absolute Lymphs (auto) 1.93 (1.0-4.6) Absolute Monos (auto) 0.76 (0.0-1.3) Lymphocytes % 20.7 L (24.0-44.0) % Monocytes % 8.1 (0.0-12.0) % Eosinophils % 3.4 (0.00-5.0) % Basophils % 0.6 (0.0-0.4) % Absolute Granulocytes 6.27 (1.4-6.9) Basophils # 0.06 (0-0.4) Sodium 141 (137-145) mmol/L Potassium 4.3 (3.5-5.1) mmol/L Chloride 104 (98-107) mmol/L Carbon Dioxide 30 (22-30) mmol/L Anion Gap 11.2 (5-15) MEQ/L BUN 14 (7-17) mg/dL Creatinine 0.68 (0.52-1.04) mg/dL Estimated GFR > 60.0 ML/MIN Glucose 94 (74-106) mg/dL Lactic Acid (0.4-2.0) Calcium 9.4 (8.4-10.2) mg/dL Total Bilirubin 0.60 (0.2-1.3) mg/dL AST 22 (14-36) U/L ALT 21 (0-35) U/L Alkaline Phosphatase 111 (38-126) U/L Serum Total Protein 7.1 (6.3-8.2) g/dL Albumin 4.0 (3.5-5.0) g/dL Amylase 40 (30-110) U/L Lipase 37 (23-300) U/L Urine Color (YELLOW) Urine Appearance (CLEAR) Urine pH (5-6) Ur Specific [place] (1.005-1.025) Urine Protein (Negative) Urine Ketones (NEGATIVE) Urine Blood (0-5) Valentin/ul Urine Nitrite (NEGATIVE) Urine Bilirubin (NEGATIVE) Urine Urobilinogen (0-1) mg/dL Ur Leukocyte Esterase (NEGATIVE) Urine WBC (Auto) (0-5) /HPF Urine RBC (Auto) (0-2) /HPF U Epithel Cells (Auto) (FEW) /HPF Urine Bacteria (Auto) (NEGATIVE) /HPF Urine Mucus (Auto) (NEGATIVE) /HPF Urine Culture Reflexed (NO) Urine Glucose (NEGATIVE) mg/dL Urine Opiates Level NEGATIVE (NEGATIVE) Ur Methadone NEGATIVE (NEGATIVE) Urine Barbiturates NEGATIVE (NEGATIVE) Ur Phencyclidine (PCP) NEGATIVE (NEGATIVE) Urine Amphetamine POSITIVE (NEGATIVE) U Benzodiazepine Level NEGATIVE (NEGATIVE) Urine Cocaine NEGATIVE (NEGATIVE) Urine Marijuana (THC) NEGATIVE (NEGATIVE) 12/19/21 12/19/21 Range/Units 10:58 10:55 WBC (4.0-10.5) K/mm3 RBC (4.1-5.4) M/mm3 Hgb (12.0-16.0) gm/dl Hct (35-47) % MCV (78-100) fl MCH (26-32) pg MCHC (32-36) g/dl RDW (11.5-14.0) % Plt Count (150-450) K/mm3 MPV (7.5-11.0) fl Gran % (36.0-66.0) % Eos # (Auto) (0-0.5) Absolute Lymphs (auto) (1.0-4.6) Absolute Monos (auto) (0.0-1.3) Lymphocytes % (24.0-44.0) % Monocytes % (0.0-12.0) % Eosinophils % (0.00-5.0) % Basophils % (0.0-0.4) % Absolute Granulocytes (1.4-6.9) Basophils # (0-0.4) Sodium (137-145) mmol/L Potassium (3.5-5.1) mmol/L Chloride (98-107) mmol/L Carbon Dioxide (22-30) mmol/L Anion Gap (5-15) MEQ/L BUN (7-17) mg/dL Creatinine (0.52-1.04) mg/dL Estimated GFR ML/MIN Glucose (74-106) mg/dL Lactic Acid 1.3 (0.4-2.0) Calcium (8.4-10.2) mg/dL Total Bilirubin (0.2-1.3) mg/dL AST (14-36) U/L ALT (0-35) U/L Alkaline Phosphatase (38-126) U/L Serum Total Protein (6.3-8.2) g/dL Albumin (3.5-5.0) g/dL Amylase (30-110) U/L Lipase (23-300) U/L Urine Color YELLOW (YELLOW) Urine Appearance CLOUDY (CLEAR) Urine pH 6.0 (5-6) Ur Specific [place] 1.026 (1.005-1.025) Urine Protein 30 (Negative) Urine Ketones NEGATIVE (NEGATIVE) Urine Blood NEGATIVE (0-5) Valentin/ul Urine Nitrite NEGATIVE (NEGATIVE) Urine Bilirubin NEGATIVE (NEGATIVE) Urine Urobilinogen NEGATIVE (0-1) mg/dL Ur Leukocyte Esterase LARGE (NEGATIVE) Urine WBC (Auto) 16-25 (0-5) /HPF Urine RBC (Auto) 16-25 (0-2) /HPF U Epithel Cells (Auto) MANY (FEW) /HPF Urine Bacteria (Auto) RARE (NEGATIVE) /HPF Urine Mucus (Auto) SLIGHT (NEGATIVE) /HPF Urine Culture Reflexed YES (NO) Urine Glucose NEGATIVE (NEGATIVE) mg/dL Urine Opiates Level (NEGATIVE) Ur Methadone (NEGATIVE) Urine Barbiturates (NEGATIVE) Ur Phencyclidine (PCP) (NEGATIVE) Urine Amphetamine (NEGATIVE) U Benzodiazepine Level (NEGATIVE) Urine Cocaine (NEGATIVE) Urine Marijuana (THC) (NEGATIVE) - Progress Progress: improved Counseled pt/family regarding: drug and/or alcohol abuse, lab results, diagnosis, need for follow-up, rad results, smoking cessation - Departure Departure Disposition: Home Clinical Impression: Substance abuse, Nephrolithiasis, Methamphetamine abuse UTI (urinary tract infection) Qualifiers: Urinary tract infection type: acute pyelonephritis Qualified Code(s): N10 - Acute pyelonephritis Condition: Stable Critical Care Time: Yes Critical Care Time(excluding separately billable procedures): Critical 30-74 mins Referrals: ARASELI BARON [Primary Care Provider] - Follow up/PCP as directed Instructions: Urinary Tract Infection, Adult (DC), Methamphetamine, Kidney Stones (DC) Additional Instructions: Discharge/Care Plan SRIRAM DYKES was seen on 12/19/21 in the Emergency Room. The patient was counseled regarding Diagnosis,Lab results, Imaging studies, need for follow up and when to return to the Emergency Room. Prescriptions given: Discharge Note I have spoken with the patient and/or caregivers. I have explained the patient's condition, diagnosis and treatment plan based on the information available to me at this time. I have answered the patient's and/or caregiver's questions and addressed any concerns. The patient and/or caregivers have as good understanding of the patient's diagnosis, condition and treatment plan as can be expected at this point. The vital signs have been stable. The patient's condition is stable and appropriate for discharge from the emergency department. The patient will pursue further outpatient evaluation with the primary care physician or other designated or consulting physician as outlined in the discharge instructions. The patient and/or caregivers are agreeable to this plan of care and follow-up instructions have been explained in detail. The patient and/or caregivers have received these instruction. The patient/and or caregivers are aware that any significant change in condition or worsening of symptoms should prompt an immediate return to this or the closest emergency department or call 911. SRIRAM DYKES was seen on 12/19/21 n the Emergency Room. At that time you were treated for an emergent condition, during your visit Laboratory, Radiology and/or other procedures may have been ordered. It is very important that you follow-up with your Primary Care Physician ARASELI BARON within the next 24-48 hours to review your Emergency Room visit and the final results of testing that was ordered. Some test results such as Urine Cultures, Blood Cultures, and other cultures if ordered will not be finalized for 24-48 hours. If you do not have a Primary Care Provider please call the medical records department at [phone] ext [phone] to obtain a copy of your results or you may sign into our patient portal to obtain these results by visiting us @ [email or web address] and completing the following steps: 1. Click on the Patient Portal link 2. Click the Patient Self Enrollment Link to complete the enrollment form and entering your 3. Once the enrollment form is completed you will receive an email with a temporary ID and password at the email address you provided. 4. Next choose a user name and password. Your user name must be at least 4 characters long and your password must be at least 4 characters long. 5. Choose a security question from the list and provide your answer to the question. If you already have signed into the Health Portal you may access your Health Care Information 29/05 by the following steps: 1. Login to our website @ [email or web address] 2. Enter your original user name and password. FAQS The [facility] Health Portal is an online tool that contains your Lab Results, Radiology Reports, Visit History, Discharge Instructions and Health Summary Lab and Radiology Results will not be available for 72 hours on the portal. The Portal is a secure site, passwords are encryted and URLs are re-written so they cannot be copied and pasted. You and authorized family members are the only ones who can access your Portal. Also there is a timeout feature that protects your information if you leave the Portal page open. If you have technical difficulty please use the Contact Us link on the page this will allow you to submit any questions you have regarding the Portal or you may contact the Medical Record Department at [phone]. Prescriptions: Ciprofloxacin [Cipro 500 MG] 500 mg PO BIDAC #20 tablet
[2021-12-19] MEDS ORDERED: SUBLIMAZE 100 MCG/2 ML ONE (11:12)
[2021-12-19] MEDS ORDERED: Sodium Chloride 0.9% 1000 ML 1,000 ML ONE (11:13)
[2021-12-19 11:19] LABS: Absolute Neutrophil Ct (ANC) 6.27 (1.4-6.9); Basophil (Absolute #) 0.06 (0-0.4); Eosinophil % 3.4 % (0.00-5.0); Eosinophil (Absolute #) 0.32 (0-0.5); Hematocrit 39.5 % (35-47); Hemoglobin 12.7 gm/dl (12.0-16.0); Lymphocyte (Absolute #) 1.93 (1.0-4.6); Lymphocytes % 20.7 % (24.0-44.0); Mean Cell Volume 89.8 fl (78-100); Mean Corpuscular Hemoglobin 28.9 pg (26-32); Mean Corpuscular Hgb Concent. 32.2 g/dl (32-36); Mean Platelet Volume 10.5 fl (7.5-11.0); Monocyte (Absolute #) 0.76 (0.0-1.3); Monocytes % 8.1 % (0.0-12.0); Neutrophil % 67.2 % (36.0-66.0); Platelet Count 316 K/mm3 (150-450); Red Cell Distribution Width 13.1 % (11.5-14.0); White Blood Count 9.3 K/mm3 (4.0-10.5)
[2021-12-19 11:25] LABS: Appearance CLOUDY (CLEAR); Bacteria RARE /HPF (NEGATIVE); Bilirubin NEGATIVE (NEGATIVE); Blood NEGATIVE Ery/ul (0-5); Epithelial Cells MANY /HPF (FEW); Glucose NEGATIVE (NEGATIVE); Ketones NEGATIVE (NEGATIVE); Leukocyte Esterase LARGE (NEGATIVE); Mucus SLIGHT /HPF (NEGATIVE); Nitrite NEGATIVE (NEGATIVE); Protein,Urine Dip 30 (Negative); Specific Gravity 1.026 (1.005-1.025); Urobilinogen NEGATIVE mg/dL (0-1)
[2021-12-19] MEDS ORDERED: ROCEPHIN 1 Gm-D5w 50 ml Bag** 1 G/50 ML IVPB IV STA (11:31)
[2021-12-19 11:37] LABS: ALKALINE PHOSPHATASE 111 U/L (38-126); AMYLASE 40 U/L (30-110); ANION GAP 11.2 MEQ/L (5-15); BLOOD UREA NITROGEN 14 mg/dL (7-17); CHLORIDE 104 mmol/L (98-107); Calcium 9.4 mg/dL (8.4-10.2); Carbon Dioxide 30 mmol/L (22-30); Creatinine 1 0.68 mg/dL (0.52-1.04); EST GLOMERULAR FILTRATION RATE > 60.0 ML/MIN; Glucose 94 mg/dL (74-106); LIPASE 37 U/L (23-300); Potassium 4.3 mmol/L (3.5-5.1); SGOT/AST 22 U/L (14-36); SGPT/ALT 21 U/L (0-35); SODIUM 141 mmol/L (137-145); Total Protein 7.1 g/dL (6.3-8.2)
[2021-12-19 11:47] LABS: Barbiturate,Urine NEGATIVE (NEGATIVE); Benzodiazepine,Urine NEGATIVE (NEGATIVE); Cocaine,Urine NEGATIVE (NEGATIVE); Methadone,Urine NEGATIVE (NEGATIVE); Opiate,Urine NEGATIVE (NEGATIVE); PCP,Urine NEGATIVE (NEGATIVE); THC,Urine NEGATIVE (NEGATIVE)
[2021-12-19] MEDS ORDERED: ROCEPHIN 1 Gm-D5w 50 ml Bag** 1 G/50 ML IVPB IV ONE (11:54)
[2021-12-19 12:29] LABS: Amphetamine,Urine POSITIVE (NEGATIVE)
[2021-12-19 12:37] VITALS: O2SAT 98
[2021-12-19 12:58] VITALS: BP 105/63; PULSE 82
--- NOTE | 2021-12-19 17:50 | XRAY ---
Indication: Right lower quadrant pain 1 week. Nausea. Multiple contiguous axial images obtained through the abdomen and pelvis without contrast. Comparison: January 28, 2021. Lung bases are clear. Heart not enlarged. Stomach is distended with food/fluid. Noncontrasted stomach and bowel loops appear nonobstructed. Normal appendix. Again mild diffuse scattered colonic fecal debris less than before. Descending and sigmoid diverticulosis. Again nonobstructing left renal punctate calculus. Enlarged uterus. No free fluid/air. Remaining liver, gallbladder, pancreas, spleen, adrenal glands, kidneys, ureters, bladder, and aorta appear unremarkable for noncontrast exam. Osseous structures intact again with bilateral superior pubic bone orthopedic rods. Previous sacroiliac hardware has been removed. Impression: 1. Enlarged uterus better evaluated with pelvic sonogram if clinically warranted. 2. Stable nonobstructing left renal micro-calculus. 3. Remaining CT abdomen/pelvis without contrast exam is negative Comment: Preliminary interpretation made by [facility]. No critical discrepancy.
== END 2021-12-19 12:58 | disposition home or self-care (01) ==
LOC: ED 10:39
DX: N10 Acute pyelonephritis (principal); N39.0 Urinary tract infection, site not specified; N20.0 Calculus of kidney; F15.10 Other stimulant abuse, uncomplicated; R10.31 Right lower quadrant pain; R11.0 Nausea; Z86.16 Personal history of COVID-19; Z72.0 Tobacco use; Z79.899 Other long term (current) drug therapy
CPT/HCPCS: 36000; 36415; 74176; 80053; 80307; 81001; 82150; 83605; 83690; 85025; 87086; 96360; 96365; 96374; 99284; 99291; J0696; J3010

== ENCOUNTER 2024-06-23 10:11 | Emergency (ER) | payer SELFPAY ==
[2024-06-23 10:32] VITALS: RESP 18; TEMP 97.3
--- NOTE | 2024-06-23 10:38 | ERPHSYRPT ---
- History of Present Illness Time Seen by Provider: 06/23/24 10:33 Source: patient, family Exam Limitations: no limitations Patient Subjective Stated Complaint: pt states she was attacked by a dog last week. pt states that [facility] states that she tore a ligament in her rt knee. pt states pain and swelling to rt leg. Triage Nursing Assessment: pt ambulated into the er; pt is axo x4; c/o rt leg pain; pt states 7/10 pain to RLE; pitting edema present to RLE; redness present to rt vo/calf; strong rt pedal pulse; no warmth present to RLE; no respiratory distress present; vitals wnl Physician History: Pt advised to f/u health Dept to f/u dog bite and that she needs to begin rabies shots within 2 weeks of bite to help prevent rabies EUGENE. opposite leg swollen now with erythema and tenderness. discussed risks/benefits of testing with pt and family including CT/US, CBC, CMP, Lactate, HCG and they wish to proceed, these are ordered. Results discussed with pt and family. family is in ER as independent confirming source for Hx. pt reports that she got tet update already at other ER and animal control contacted Method of Injury: fell, twisted Occurred: last week Quality: constant, sharpness, throbbing Severity of Pain-Max: moderate Severity of Pain-Current: moderate Lower Extremities Pain: leg: right, knee: right Modifying Factors: Improves With: immobilization, movement Associated Symptoms: none Allergies/Adverse Reactions: No Known Drug Allergies Allergy (Verified 06/23/24 10:15) Hx Tetanus, Diphtheria Vaccination/Date Given: Yes Hx Influenza Vaccination/Date Given: No Hx Pneumococcal Vaccination/Date Given: No Immunizations Up to Date: No Travel Risk - International Travel Have you traveled outside of the country in past 3 weeks: No - Emerging Infectious Disease Are you exhibiting symptoms associated with any current EIDs: No - Review of Systems Constitutional: No Fever, No Chills Eyes: No Symptoms Ears, Nose, & Throat: No Symptoms Respiratory: No Cough, No Dyspnea Cardiac: No Chest Pain, No Edema, No Syncope Abdominal/Gastrointestinal: No Abdominal Pain, No Nausea, No Vomiting, No Diarrhea Genitourinary Symptoms: No Dysuria Musculoskeletal: Injury, Joint Pain, Joint Swelling, No Back Pain, No Neck Pain Skin: Cellulitis, No Rash Neurological: No Dizziness, No Focal Weakness, No Sensory Changes Psychological: No Symptoms Endocrine: No Symptoms Hematologic/Lymphatic: No Symptoms Immunological/Allergic: No Symptoms All Other Systems: Reviewed and Negative - Past Medical History Pertinent Past Medical History: Yes Neurological History: Peripheral Neuropathy ENT History: No Pertinent History Cardiac History: No Pertinent History Respiratory History: No Pertinent History Endocrine Medical History: No Pertinent History Musculoskeletal History: Fractures, Osteoarthritis GI Medical History: No Pertinent History History: Other Psycho-Social History: Depression Female Reproductive Disorders: Other Other Medical History: Pt had in patient rehab after surgery, then had home health, recurrent UTI - Past Surgical History Past Surgical History: Yes Gastrointestinal: Exploratory Laparoscopy Musculoskeletal: Orthopedic Surgery Female Surgical History: Tubal Ligation Other Surgical History: exploratory lap for internal bleeding from accident - Female History Hx Last Menstrual Period: 2 WEEKS Hx Now: No (unknown HCG pending) - Social History Smoking Status: Current every day smoker How long have you smoked: years Exposure to second hand smoke: Yes Drug Use: other Patient Lives Alone: No - Social Determinants of Health Will the patient participate in the screening: Yes Do you worry about a steady place to live?: No Do you have any problems with any of the following?: No known problems In the past 12 months,have you had to go without utilities?: No Transportation Issues: No Has anyone in your support network made you feel unsafe?: No Have you or anyone in your house had to go without enough: No - Nursing Vital Signs Nursing Vital Signs: Initial Vital Signs Pulse Rate 80 06/23/24 10:18 Blood Pressure 130/83 06/23/24 10:18 O2 Sat by Pulse Oximetry 98 06/23/24 10:18 Pain Scale Pain Intensity 7 - Physical Exam General Appearance: no apparent distress, alert Eyes, Ears, Nose, Throat Exam: moist mucous membranes Neck Exam: non-tender, supple Cardiovascular/Respiratory Exam: chest non-tender, normal breath sounds, regular rate/rhythm, no respiratory distress Gastrointestinal/Abdominal Exam: non-tender, guarding Back Exam: normal inspection, No vertebral tenderness Hips Exam: bilateral: non-tender, normal inspection, normal range of motion, no evidence of injury Legs Exam: right leg: bone tenderness, pain, soft tissue tenderness, swelling, left leg: non-tender, normal range of motion, abrasions (dog bite) Knees Exam: right knee: bone tenderness, joint effusion, pain, soft tissue tenderness, swelling, left knee: non-tender, normal inspection, normal range of motion, no evidence of injury Ankle Exam: bilateral ankle: non-tender, normal inspection, normal range of motion, no evidence of injury Foot Exam: bilateral foot: non-tender, normal inspection, normal range of motion, no evidence of injury DTR - Lower Extremities Exam: knee (R): 2+, knee (L): 2+, ankle (R): 2+, ankle (L): 2+ Neuro/Tendon Exam: normal sensation, normal motor functions, normal tendon functions, no evidence tendon injury Mental Status Exam: alert, oriented x 3, cooperative Skin Exam: normal color, warm, dry SpO2 Interpretation: normal SpO2: 99 O2 Delivery: Room Air - Course Nursing assessment & vital signs reviewed: Yes - CT Exams Right Lower Extremity CT Interpretation: Tele-radiologist Report, No Fracture, Other (STS no abscess collection seen or other pathology. ) Ordered Tests: Active Orders 24 hr Category Date Time Status LOWER EXTREMITY WO CONTRAST [CT] Stat Exams 06/23/24 10:43 Completed VENOUS UNILAT/LIMITED EXTREMIT [US] Stat Exams 06/23/24 12:03 Taken CBC W DIFF Stat Lab 06/23/24 11:25 Completed CMP Stat Lab 06/23/24 11:25 Completed HCG QUALITATIVE, SERUM Stat Lab 06/23/24 11:25 Completed Lactic Acid Stat Lab 06/23/24 11:25 Completed Lab/Rad Data: Laboratory Result Diagrams 06/23/24 11:25 06/23/24 11:25 Laboratory Results 06/23/24 06/23/24 06/23/24 Range/Units 11:25 11:25 11:25 WBC (3.98-10.04) x10^3/uL RBC (3.93-5.22) x10^6/uL Hgb (11.2-15.7) g/dL Hct (34.1-44.9) % MCV (79.4-94.8) fL MCH (25.6-32.2) pg MCHC (32.2-35.5) g/dL RDW (11.7-14.4) % Plt Count (182-369) x10^3/uL MPV (9.4-12.3) fL Gran % (34.0-71.1) % Immature Gran % (Auto) (0.001-0.429) % Nucleat RBC Rel Count (0.00-0.2) % Eos # (Auto) (0.04-0.36) x10^3/uL Immature Gran # (Auto) (0.001-0.031) x10^3u/L Absolute Lymphs (auto) (1.18-3.74) x10^3/uL Absolute Monos (auto) (0.24-0.86) x10^3/uL Absolute Nucleated RBC (0.00-0.012) x10^3u/L Lymphocytes % (19.3-51.7) % Monocytes % (4.7-12.5) % Eosinophils % (0.7-5.8) % Basophils % (0.1-1.2) % Absolute Granulocytes (1.56-6.13) x10^3/uL Basophils # (0.01-0.08) x10^3/uL Sodium 139 (135-145) mmol/L Potassium 4.0 (3.5-5.1) mmol/L Chloride 105 (98-107) mmol/L Carbon Dioxide 28 (22-30) mmol/L Anion Gap 9.8 (5-15) MEQ/L BUN 11 (7-17) mg/dL Creatinine 0.70 (0.52-1.04) mg/dL Estimated GFR 111.4 ML/MIN Glucose 113 H (74-106) mg/dL Lactic Acid 0.8 (0.4-2.0) Calcium 8.9 (8.4-10.2) mg/dL Total Bilirubin 0.30 (0.2-1.3) mg/dL AST 27 (14-36) U/L ALT 21 (0-35) U/L Alkaline Phosphatase 104 (38-126) U/L Serum Total Protein 6.8 (6.3-8.2) g/dL Albumin 3.8 (3.5-5.0) g/dL Serum HCG, Qual NEGATIVE (NEGATIVE) 06/23/24 Range/Units 11:25 WBC 7.1 (3.98-10.04) x10^3/uL RBC 4.24 (3.93-5.22) x10^6/uL Hgb 12.2 (11.2-15.7) g/dL Hct 36.9 (34.1-44.9) % MCV 87.0 (79.4-94.8) fL MCH 28.8 (25.6-32.2) pg MCHC 33.1 (32.2-35.5) g/dL RDW 13.1 (11.7-14.4) % Plt Count 282 (182-369) x10^3/uL MPV 9.8 (9.4-12.3) fL Gran % 63.9 (34.0-71.1) % Immature Gran % (Auto) 0.4 (0.001-0.429) % Nucleat RBC Rel Count 0.0 (0.00-0.2) % Eos # (Auto) 0.25 (0.04-0.36) x10^3/uL Immature Gran # (Auto) 0.03 (0.001-0.031) x10^3u/L Absolute Lymphs (auto) 1.75 (1.18-3.74) x10^3/uL Absolute Monos (auto) 0.47 (0.24-0.86) x10^3/uL Absolute Nucleated RBC 0.00 (0.00-0.012) x10^3u/L Lymphocytes % 24.6 (19.3-51.7) % Monocytes % 6.6 (4.7-12.5) % Eosinophils % 3.5 (0.7-5.8) % Basophils % 1.0 (0.1-1.2) % Absolute Granulocytes 4.53 (1.56-6.13) x10^3/uL Basophils # 0.07 (0.01-0.08) x10^3/uL Sodium (135-145) mmol/L Potassium (3.5-5.1) mmol/L Chloride (98-107) mmol/L Carbon Dioxide (22-30) mmol/L Anion Gap (5-15) MEQ/L BUN (7-17) mg/dL Creatinine (0.52-1.04) mg/dL Estimated GFR ML/MIN Glucose (74-106) mg/dL Lactic Acid (0.4-2.0) Calcium (8.4-10.2) mg/dL Total Bilirubin (0.2-1.3) mg/dL AST (14-36) U/L ALT (0-35) U/L Alkaline Phosphatase (38-126) U/L Serum Total Protein (6.3-8.2) g/dL Albumin (3.5-5.0) g/dL Serum HCG, Qual (NEGATIVE) - Progress Progress: improved, re-examined Progress Note: 06/23/24 13:32 discussed with pt that there is likely a knee joint injury and that we have not determined the cause of the swelling exactly and could still be other pathology progressing including infection, vascular and even undetected blood clots with negative US or future DVT to develop. She prefers outpt f/u with PMD this week and antibiotics rather than further testing/obs in ER or hospital / and she has the capacity to make this choice. Counseled pt/family regarding: lab results, diagnosis, need for follow-up, rad results Medical Desision Making - Independent Historian Additional History obtained from: Family - Discussion of managment Reviewed:: Test results, Need for additional workup Agreed on:: Treatment plan, need for follow-up - Diagnostic Testing Diagnostic test were ordered, analyzed, and reviewed by me: Yes Radiological Interpretation: Teleradiologist Report - Risk of complications The pt has a mod risk of morbidity or mortality based on: Need for prescription drug management The pt has a high risk of morbidity or mortality based on: Decision regarding hospitilization or escalation of hosp level of care - Departure Departure Disposition: Home Clinical Impression: right leg swelling unknown cause, Cellulitis, SP right knee injury, SP canine bite Condition: Good Critical Care Time: No Referrals: ARASELI BARON [Primary Care Provider] - Follow up/PCP as directed Instructions: Deep Vein Thrombosis (DVT) ED, Deep vein thrombosis - Discharge instructions, Cellulitis (Skin Infection), Adult ED, Swelling, Ligament Injuries in the Knee (DC), Internal Derangement of the Knee (DC), Animal Bites ED Additional Instructions: we did not find a blood clot in the leg but one could still develop and you are at risk - so we are providing the instructions to watch for just in case. There may be infection and you should be taking antibiotic from the dog bite so we are providing a prescription for that. you also need followup with your Dr. and maybe ortho for your right knee swelling and maybe an MRI to evaluate this with your DrVilma Call animal control/ law enforcement to see how the dog is doing and if you will need rabies shots. Return meantime if not improving, fever, increased swelling, short of breath chest pain, dizziness or any other symptoms or concerns. Prescriptions: Amox Tr/Potass Clav. 875 mg [Augmentin 875-125 Tablet] 875 mg PO BID #20 tablet
[2024-06-23 11:29] LABS: Absolute Neutrophil Ct (ANC) 4.53 x10^3/uL (1.56-6.13); Basophil (Absolute #) 0.07 x10^3/uL (0.01-0.08); Eosinophil % 3.5 % (0.7-5.8); Eosinophil (Absolute #) 0.25 x10^3/uL (0.04-0.36); Hematocrit 36.9 % (34.1-44.9); Hemoglobin 12.2 g/dL (11.2-15.7); IMMATURE GRAN # 0.03 x10^3u/L (0.001-0.031); IMMATURE GRAN % 0.4 % (0.001-0.429); Lymphocyte (Absolute #) 1.75 x10^3/uL (1.18-3.74); Lymphocytes % 24.6 % (19.3-51.7); Mean Corpuscular Hemoglobin 28.8 pg (25.6-32.2); Mean Corpuscular Hgb Concent. 33.1 g/dL (32.2-35.5); Mean Platelet Volume 9.8 fL (9.4-12.3); Monocyte (Absolute #) 0.47 x10^3/uL (0.24-0.86); Monocytes % 6.6 % (4.7-12.5); Neutrophil % 63.9 % (34.0-71.1); Platelet Count 282 x10^3/uL (182-369); Red Blood Count 4.24 x10^6/uL (3.93-5.22); Red Cell Distribution Width 13.1 % (11.7-14.4); White Blood Count 7.1 x10^3/uL (3.98-10.04)
[2024-06-23 11:41] LABS: HCG SERUM TEST NEGATIVE (NEGATIVE)
[2024-06-23 11:42] LABS: ALBUMIN 3.8 g/dL (3.5-5.0); ANION GAP 9.8 MEQ/L (5-15); BILIRUBIN,TOTAL 0.3 mg/dL (0.2-1.3); Calcium 8.9 mg/dL (8.4-10.2); Creatinine 1 0.7 mg/dL (0.52-1.04); EST GLOMERULAR FILTRATION RATE 111.4 ML/MIN; Total Protein 6.8 g/dL (6.3-8.2)
--- NOTE | 2024-06-23 11:43 | XRAY ---
CLINICAL HISTORY: right knee pain and LE swelling COMPARISON: None. TECHNIQUE: Thin axial CT non-contrast images of the lower extremity (limited region) were obtained along with coronal and sagittal reconstructions. One of the following dose reduction techniques were utilized for this exam: Automated exposure control, adjustment of the mA and/or kV according to patient size, and use of iterative reconstruction. FINDINGS: Bones: Normal alignment of the femur, tibia, fibula, and patella. No fractures or dislocations. No lytic or sclerotic lesions. Joint Space: Normal joint spaces without significant narrowing. No evidence of loose bodies or intra-articular fragments. Soft Tissues: Circumferential diffuse soft tissue oedematous changes of the right leg subcutaneous fat planes. No signs of masses, or abnormal fluid collections. Bursae: Mild intra-articular joint effusion is chiefly seen at the supra-patellar region, with stranding and smudging of the intra-articular fat. IMPRESSION: 1. Mild intra-articular joint effusion is chiefly seen at the supra-patellar region, with stranding and smudging of the intra-articular fat. 2. Circumferential diffuse soft tissue oedematous changes of the right leg subcutaneous fat planes. 3. No fracture lines. 4. further assessment by MRI knee is recommended. Electronically Signed by: Ryan Sauceda MD. (06/23/2024 11:40:04 EDT)
[2024-06-23 13:37] VITALS: O2SAT 99
[2024-06-23 13:47] VITALS: BP 127/88; PULSE 77
--- NOTE | 2024-06-23 20:02 | XRAY ---
Indication: Right leg swelling. Two-dimensional sonogram and color Doppler imaging major venous vessels right leg performed. Comparison: None No thrombus seen in the examined deep venous vessels right leg including greater saphenous vein. Veins demonstrate normal compressibility. Venous waveforms are normal with and without augmentation. Impression: Right leg negative for DVT. Comment: Preliminary report was given.
== END 2024-06-23 13:56 | disposition home or self-care (01) ==
LOC: ED 10:11
DX: R22.41 Localized swelling, mass and lump, right lower limb (principal); L03.115 Cellulitis of right lower limb; S89.91XA Unspecified injury of right lower leg, initial encounter; S80.871A Other superficial bite, right lower leg, initial encounter; W54.0XXA Bitten by dog, initial encounter; Z79.899 Other long term (current) drug therapy; Z72.0 Tobacco use
CPT/HCPCS: 36415; 73700; 80053; 83605; 84703; 85025; 93971; 99283

== ENCOUNTER 2025-08-21 19:08 | Emergency (ER) | payer MEDICAID ==
[2025-08-21 19:21] VITALS: RESP 18; O2SAT 98
[2025-08-21] MEDS ORDERED: DELTASONE 20 MG ONE (19:24)
[2025-08-21] MEDS ORDERED: MOTRIN 600 MG ONE (19:24)
[2025-08-21] MEDS: DELTASONE 20 MG PO ONE (19:26)
[2025-08-21] MEDS: MOTRIN 600 MG PO ONE (19:26)
--- NOTE | 2025-08-21 19:35 | ERPHSYRPT ---
- History of Present Illness Time Seen by Provider: 08/21/25 19:20 Source: patient Patient Subjective Stated Complaint: "I woke up this morning with this pain in my thumb and wrist. I didn't injury it. I have had pain and swelling in both hands before, they said it was arthritis. The pain has got so bad I can't stand it". Triage Nursing Assessment: . Physician History: Patient reports that she had discomfort in her right wrist area under her thumb when she woke this morning. No fever or chills. She reports she has had another episode of this previously and was told it was related to arthritis. She has no other joint pain. No other systemic symptoms. Denies motor weakness or sensory loss. Denies soft tissue swelling or discoloration. Has taken no meds today. 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 Allergies/Adverse Reactions: No Known Drug Allergies Allergy (Verified 08/21/25 19:15) Hx Tetanus, Diphtheria Vaccination/Date Given: Yes Hx Influenza Vaccination/Date Given: No Hx Pneumococcal Vaccination/Date Given: No Immunizations Up to Date: No Travel Risk - International Travel Have you traveled outside of the country in past 3 weeks: No - Emerging Infectious Disease Are you exhibiting symptoms associated with any current EIDs: No - Review of Systems Constitutional: No Fever, No Chills Eyes: No Symptoms Ears, Nose, & Throat: No Symptoms Respiratory: No Cough, No Dyspnea Cardiac: No Chest Pain, No Edema, No Syncope Abdominal/Gastrointestinal: No Abdominal Pain, No Nausea, No Vomiting, No Diarrhea Genitourinary Symptoms: No Dysuria Musculoskeletal: Joint Pain, No Back Pain, No Neck Pain Skin: No Rash Neurological: No Dizziness, No Focal Weakness, No Sensory Changes Psychological: No Symptoms Endocrine: No Symptoms All Other Systems: Reviewed and Negative - Past Medical History Pertinent Past Medical History: Yes Neurological History: Peripheral Neuropathy ENT History: No Pertinent History Cardiac History: No Pertinent History Respiratory History: No Pertinent History Endocrine Medical History: No Pertinent History Musculoskeletal History: Fibromyalgia, Fractures, Osteoarthritis GI Medical History: No Pertinent History History: Other Psycho-Social History: Depression Female Reproductive Disorders: Other Other Medical History: Pt had in patient rehab after surgery, then had home health, recurrent UTI - Past Surgical History Past Surgical History: Yes Neuro Surgical History: No Pertinent History Cardiac: No Pertinent History Respiratory: No Pertinent History Gastrointestinal: Exploratory Laparoscopy Genitourinary: No Pertinent History Musculoskeletal: Orthopedic Surgery Female Surgical History: Tubal Ligation Other Surgical History: exploratory lap for internal bleeding from accident - Female History Hx Last Menstrual Period: 08/20/2025 Hx Now: No - Social History Smoking Status: Current every day smoker How long have you smoked: years Exposure to second hand smoke: Yes Drug Use: none, other - Social Determinants of Health Will the patient participate in the screening: Yes Do you worry about a steady place to live?: No Do you have any problems with any of the following?: No known problems In the past 12 months,have you had to go without utilities?: No Transportation Issues: No Has anyone in your support network made you feel unsafe?: No Have you or anyone in your house had to go w/o enough food: No - Nursing Vital Signs Nursing Vital Signs: Initial Vital Signs Pulse Rate 100 H 08/21/25 19:15 Respiratory Rate 18 08/21/25 19:15 Blood Pressure 124/78 08/21/25 19:15 O2 Sat by Pulse Oximetry 98 08/21/25 19:15 Pain Scale Pain Intensity 9 - Physical Exam General Appearance: no apparent distress Eye Exam: PERRL/EOMI, eyes nml inspection Ears, Nose, Throat Exam: normal ENT inspection, TMs normal, pharynx normal, moist mucous membranes Neck Exam: normal inspection, non-tender, supple, full range of motion Respiratory Exam: normal breath sounds, lungs clear, No respiratory distress Cardiovascular Exam: regular rate/rhythm, normal heart sounds, normal peripheral pulses Gastrointestinal/Abdomen Exam: soft, normal bowel sounds, No tenderness, No mass Back Exam: normal inspection, normal range of motion, No CVA tenderness, No vertebral tenderness Extremity Exam: normal inspection, normal range of motion, other (Patient without discoloration or visible swelling. She has no tenderness over her shoulder elbow or wrist. She has focal tenderness at the base of the thumb diffusely.No instability. Pain with range of motion.) Neurologic Exam: alert, oriented x 3, cooperative, normal mood/affect, nml cerebellar function, nml station & gait, sensation nml, No motor deficits Skin Exam: normal color, warm, dry, No rash Lymphatic Exam: No adenopathy SpO2 Interpretation: normal SpO2: 98 Ordered Tests: Active Orders 24 hr Category Date Time Status HAND (MINIMUM 3 VIEWS) Stat Exams 08/21/25 19:49 Taken Medication Summary Discontinued Medications Generic Name Dose Route Start Last Admin Trade Name Riddhi COLVIN Reason Stop Dose Admin Ibuprofen 600 mg 08/21/25 19:20 08/21/25 19:26 Ibuprofen 600 Mg Tablet PO 08/21/25 19:21 600 mg STAT ONE Administration Ibuprofen Confirm 08/21/25 19:24 Ibuprofen 600 Mg Tablet Administered 08/21/25 19:25 Dose 600 mg .ROUTE .STK-MED ONE Prednisone 60 mg 08/21/25 19:20 08/21/25 19:26 Prednisone 20 Mg Tablet PO 08/21/25 19:21 60 mg STAT ONE Administration Prednisone Confirm 08/21/25 19:24 Prednisone 20 Mg Tablet Administered 08/21/25 19:25 Dose 60 mg .ROUTE .STK-MED ONE - Progress Progress: improved Progress Note: 08/21/25 19:24 Is a 40-year-old female with history of prior abdominal pain reported related arthritis atraumatic discomfort in the base of her right thumb worse with range of motion. 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 She has no neurovascular compromise. She has focal Tenderness at the base of the thumb only. Seems to reproduce symptoms.Flexion extension intact.. We have given a dose of oral anti-inflammatories and oral prednisone. X-ray was obtained to evaluate for any bony abnormality. 08/21/25 19:55 Was reviewed did not see any acute abnormality. There may be some mild MCP pH first joint space narrowing. Plan is to treat as inflammatory process with NSAIDs and brief course of steroids.Follow-up and return instructions discussed - Departure Clinical Impression: Joint pain in fingers of right hand Condition: Good Critical Care Time: No Referrals: ARASELI BARON [Primary Care Provider, INTERNAL MEDICINE] - Follow up/PCP as directed Instructions: Hand Pain (DC) Additional Instructions: You are being started on a steroid for inflammation. Take ibuprofen 800 mg every 8 hours for pain. Avoid lifting. Ice area was discomfort for 20-minute intervals. Prescriptions: Prednisone 20 mg [Deltasone 20 mg] 20 mg PO DAILY #4 tablet
[2025-08-21 20:05] VITALS: BP 115/74; PULSE 80
--- NOTE | 2025-08-22 08:42 | XRAY ---
Indication: Pain base of thumb. Comparison: None 3 view right hand demonstrates minimal 1st metacarpal multangular degenerative changes and radiocarpal joint space narrowing. No other bony, articular, or soft tissue abnormalities.
== END 2025-08-21 20:05 | disposition home or self-care (01) ==
LOC: ED 19:08
DX: M25.541 Pain in joints of right hand (principal); Z79.52 Long term (current) use of systemic steroids; Z79.899 Other long term (current) drug therapy; Z72.0 Tobacco use